=== PATIENT | female | born 1995 | race Two or more races ===

== ENCOUNTER 2023-02-03 10:57 | Inpatient (IN) | payer OTHER, MEDICAID ==
[2023-02-03 11:27] VITALS: BMI 28.8
[2023-02-03 14:18] LABS: Bilirubin Neg (Negative); Blood, Urine Negative (Negative); Clarity Clear (Clear); Glucose, Urine (Dipstick) Normal (Negative); Ketone, Urine Negative (Negative); Leukocyte Negative (Negative); Nitrite Negative (Negative); Protein, Urine (Dipstick) Negative (Neg-Trace); Urobilinogen Normal mg/dL (Less than 2)
[2023-02-03 14:29] LABS: Fetal Membranes Rupture No Membranes Rupture (No Rupture)
[2023-02-03 15:02] LABS: Bacteria/HPF 2+ HPF (None Seen); CAUTI Indications for Culture Dysuria,urgency,freq; RBC/HPF 0-3 HPF (0-3); Squamous Epithelial 0-3 HPF (0-3); WBC/HPF 0-3 HPF (0-3)
[2023-02-03 15:03] LABS: Urine Culture Reflex No No
[2023-02-03] MEDS ORDERED: fentaNYL 50 mcg/mL 1 mL Vial SLOW IVP PRN (15:12)
[2023-02-03] MEDS ORDERED: Acetaminophen 500 MG TAB PO PRN (15:12)
[2023-02-03] MEDS ORDERED: Carboprost 250 MCG/ML AMP IM PRN (15:12)
[2023-02-03] MEDS ORDERED: hydrALAZINE 20 MG/ML VIAL SLOW IVP PRN (15:12)
[2023-02-03] MEDS ORDERED: Methylergonovine 0.2 MG/ML VIAL IM PRN (15:12)
[2023-02-03] MEDS ORDERED: Promethazine HCl 25 MG/ML VIAL IM PRN ×2 (15:12→21:36)
[2023-02-03] MEDS ORDERED: Misoprostol 200 MCG TAB PR PRN (15:12)
[2023-02-03] MEDS ORDERED: Ondansetron PF 4 MG/2 ML Vial IVP PRN ×2 (15:12→21:36)
[2023-02-03] MEDS ORDERED: Lactated Ringer's 1,000 ML IV SCH (15:15)
[2023-02-03] MEDS ORDERED: NS w/ Oxytocin 30 units 500 ML IV SCH (15:15)
[2023-02-03] MEDS ORDERED: Lidocaine 1% (PF) 30 ML VIAL SC PRN (15:16)
[2023-02-03 17:08] LABS: Hematocrit 34.7 % (34.9-44.5); Hemoglobin 11.5 g/dL (12.0-15.5); Mean Corpuscular HGB CONC 33.1 g/dL (32.0-36.0); Mean Corpuscular Hemoglobin 27.6 pg (27.0-33.0); Mean Corpuscular Volume 83.2 fl (81.6-98.3); Mean Platelet Volume 10.8 fl (7.4-10.4); Platelet Count 221 10x3/uL (150-450); RBC Distribution Width 15.4 % (11.5-14.5); Red Blood Cell (RBC) Count 4.17 10x6/uL (3.90-5.03); White Blood Cell (WBC) Count 9.2 10x3/uL (3.5-10.5)
[2023-02-03 17:56] LABS: HBSAg Index 0.15 S/CO (0-0.99); Hep B Surf Ag - L&D Non-Reactive S/CO (NonReactive); Syphilis Antibody Nonreactive (Nonreactive); Syphilis Antibody Index 0.02 S/CO (<1.00 Non-Reactive)
[2023-02-03] MEDS ORDERED: Promethazine HCl 25 MG/ML VIAL ONE (20:42)
[2023-02-03] MEDS ORDERED: fentaNYL/Ropivacaine Epidural 100 ML ONE (20:51)
[2023-02-03] MEDS ORDERED: Moisturizing Cream (Eucerin) 113 GM JAR TOP PRN (21:36)
[2023-02-03] MEDS ORDERED: diphenhydrAMINE 50 MG/ML VIAL IVP PRN (21:36)
[2023-02-03] MEDS ORDERED: Lactated Ringer's 500 ML IV PRN (21:36)
[2023-02-03] MEDS ORDERED: Naloxone HCl 0.4 mg/ml Vial IVP PRN ×2 (21:36)
[2023-02-03] MEDS ORDERED: Acetaminophen 325 MG TAB PO PRN (21:36)
[2023-02-03] MEDS ORDERED: fentaNYL 2 mcg/Ropivacaine 0.2% Epidural 100 ML CADD EPIDURAL SCH (21:45)
[2023-02-03] MEDS ORDERED: Communication Order-Pharmacy FS SCH (21:45)
[2023-02-03] MEDS: ePHEDrine Sulfate 50 MG/10 ML VIAL SLOW IVP PRN (23:40)
[2023-02-04] MEDS: ePHEDrine Sulfate 50 MG/10 ML VIAL SLOW IVP PRN ×2 (03:09→07:48)
[2023-02-04] MEDS ORDERED: ePHEDrine Sulfate 50 MG/10 ML VIAL SLOW IVP SCH (03:30)
[2023-02-04] MEDS ORDERED: NS w/ Oxytocin 30 units 500 ML IV SCH ×2 (06:00)
[2023-02-04] MEDS ORDERED: CEFAZOLIN 2 GM VIAL ONE (09:46)
[2023-02-04] MEDS ORDERED: Azithromycin 500 MG VIAL ONE (09:47)
[2023-02-04] MEDS ORDERED: Famotidine/PF 20 mg/2ml Vial SLOW IVP PRN (09:48)
[2023-02-04] MEDS ORDERED: Bicitra 30 ML UDCUP PO PRN (09:48)
[2023-02-04] MEDS ORDERED: Hepatitis B Vaccine 10 MCG/0.5 ML SYR ONE (09:50)
[2023-02-04] MEDS ORDERED: Erythromycin Base 0.5% Oint 1 GM TUBE ONE (09:50)
[2023-02-04] MEDS ORDERED: Phytonadione Neonatal 1 MG/0.5 ML AMP ONE (09:50)
[2023-02-04] MEDS ORDERED: Ondansetron PF 4 MG/2 ML Vial ONE (09:57)
[2023-02-04] MEDS ORDERED: Morphine PF 10 MG/10 ML VIAL ONE (09:57)
[2023-02-04] MEDS ORDERED: Ketorolac Tromethamine 30 MG/ML VIAL ONE (09:57)
[2023-02-04] MEDS ORDERED: ePHEDrine Sulfate 50 MG/10 ML VIAL ONE (09:57)
[2023-02-04] MEDS ORDERED: Lidocaine 2% MPF 10 ML AMP (For Epidural Use) ONE (09:58)
[2023-02-04] MEDS ORDERED: Azithromycin 500 MG in Sodium Chloride 0.9% 250 ML 250 ML IVPB SCH (10:00)
[2023-02-04] MEDS ORDERED: CEFAZOLIN 2 GM in Sodium Chloride 0.9% 100 ML IVPB SCH (10:00)
[2023-02-04] MEDS ORDERED: Lidocaine 1% PF 5 ML VIAL ONE (10:14)
[2023-02-04] MEDS ORDERED: PHENYLEPHRINE-NS 100 MCG/ML 10 ML SYRINGE ONE (10:30)
[2023-02-04] MEDS ORDERED: fentaNYL 50 mcg/mL 1 mL Vial ONE ×3 (10:33→10:55)
[2023-02-04] MEDS ORDERED: Promethazine HCl 25 MG/ML VIAL ONE (10:34)
[2023-02-04] MEDS ORDERED: Midazolam HCl 2 mg/2 ml Vial ONE (10:52)
[2023-02-04] MEDS ORDERED: Boostrix 0.5 ML (Tdap) VIAL (>/=7 yrs of age) IM ONE (10:59)
[2023-02-04] MEDS ORDERED: hydrALAZINE 20 MG/ML VIAL SLOW IVP PRN (10:59)
[2023-02-04] MEDS ORDERED: Ketorolac Tromethamine 30 MG/ML VIAL IVP PRN (11:22)
[2023-02-04] MEDS ORDERED: Naloxone HCl 0.4 mg/ml Vial IV PRN (11:22)
[2023-02-04] MEDS ORDERED: Ondansetron HCl/PF 4 MG/2 ML Vial IVP PRN (11:22)
[2023-02-04] MEDS ORDERED: Fentanyl 50 MCG/1 ML VIAL SLOW IVP PRN (11:22)
[2023-02-04] MEDS ORDERED: Promethazine HCl 25 MG SUPP PR PRN (11:22)
[2023-02-04] MEDS ORDERED: diphenhydrAMINE 50 MG/ML VIAL IVP PRN (11:22)
[2023-02-04] MEDS ORDERED: Promethazine HCl 25 MG/ML VIAL IM PRN (11:22)
[2023-02-04] MEDS ORDERED: L&D-HYDROmorphone 0.5 MG/0.5 ML SYRINGE SLOW IVP PRN (11:22)
[2023-02-04] MEDS ORDERED: Moisturizing Cream (Eucerin) 113 GM JAR TOP PRN (11:22)
[2023-02-04] MEDS ORDERED: Ondansetron PF 4 MG/2 ML Vial IVP PRN (11:22)
[2023-02-04] MEDS ORDERED: Meperidine HCl/PF 25 MG/ML VIAL SLOW IVP PRN (11:22)
[2023-02-04] MEDS ORDERED: Naloxone HCl 0.4 mg/ml Vial IVP PRN ×2 (11:22)
[2023-02-04] MEDS ORDERED: Communication Order-Pharmacy FS SCH (11:30)
[2023-02-04] MEDS ORDERED: Ketorolac Tromethamine 30 MG/ML VIAL IVP SCH (11:30)
[2023-02-04] MEDS ORDERED: Oxytocin 10 UNITS/ML VIAL ONE (12:33)
[2023-02-04] MEDS ORDERED: Ibuprofen 800 MG TAB PO SCH (14:00)
[2023-02-05 03:50] LABS: Hematocrit 26.8 % (34.9-44.5); Hemoglobin 8.7 g/dL (12.0-15.5); Mean Corpuscular HGB CONC 32.5 g/dL (32.0-36.0); Mean Corpuscular Hemoglobin 27.4 pg (27.0-33.0); Mean Corpuscular Volume 84.5 fl (81.6-98.3); Mean Platelet Volume 10.6 fl (7.4-10.4); Platelet Count 183 10x3/uL (150-450); RBC Distribution Width 15.6 % (11.5-14.5); Red Blood Cell (RBC) Count 3.17 10x6/uL (3.90-5.03); White Blood Cell (WBC) Count 11.2 10x3/uL (3.5-10.5)
[2023-02-05] MEDS ORDERED: hydrALAZINE 20 MG/ML VIAL SLOW IVP PRN (07:35)
[2023-02-05] MEDS ORDERED: HYDROcodone/Acetaminophen 5/325 mg Tablet PO PRN (07:35)
[2023-02-05] MEDS ORDERED: Milk Of Magnesia 30 ML UDCUP PO PRN (07:35)
[2023-02-05] MEDS ORDERED: Bisacodyl 10 MG SUPP PR PRN (07:35)
[2023-02-05] MEDS: Acetaminophen 325 MG TAB PO SCH ×3 (08:28→20:48)
[2023-02-05] MEDS: Ferrous Sulfate 325 MG TAB PO SCH ×2 (08:28→18:14)
[2023-02-05] MEDS: Ibuprofen 800 MG TAB PO SCH ×3 (08:29→20:48)
[2023-02-05] MEDS: Docusate 100 MG CAP PO SCH ×2 (08:29→20:49)
[2023-02-05] MEDS: HYDROcodone/Acetaminophen 5/325 mg Tablet PO PRN ×2 (16:56→23:14)
[2023-02-06] MEDS: Ibuprofen 800 MG TAB PO SCH ×3 (07:20→13:55)
[2023-02-06] MEDS: Acetaminophen 325 MG TAB PO SCH ×3 (07:22→13:53)
[2023-02-06 07:51] VITALS: BP 101/58; TEMP 97.7
[2023-02-06] MEDS: HYDROcodone/Acetaminophen 5/325 mg Tablet PO PRN ×2 (08:03→14:44)
[2023-02-06] MEDS: Docusate 100 MG CAP PO SCH (08:04)
[2023-02-06] MEDS: Ferrous Sulfate 325 MG TAB PO SCH (08:04)
== END 2023-02-06 15:50 | disposition home or self-care (01) | DRG 787 ==
LOC: CSHLD/OP 10:57 → CSHLD 15:17 → CSHPP 02-04 13:20
PROVIDERS: ADMIT Student in an Organized Health Care Education/Training Program; ATTEND Student in an Organized Health Care Education/Training Program
PROC: 10907ZC Drainage of Amniotic Fluid, Therapeutic from Products of Conception, Via Natural or Artificial Opening (ICD-10-PCS; principal; 2023-02-04)
PROC: 10D00Z1 Extraction of Products of Conception, Low, Open Approach (ICD-10-PCS; 2023-02-04)
PROC: 10H07YZ Insertion of Other Device into Products of Conception, Via Natural or Artificial Opening (ICD-10-PCS; 2023-02-04)
DX: O36.8130 Decreased fetal movements, third trimester, not applicable or unspecified (principal); O98.82 Other maternal infectious and parasitic diseases complicating childbirth; Z3A.39 39 weeks gestation of pregnancy; Z37.0 Single live birth; O42.02 Full-term premature rupture of membranes, onset of labor within 24 hours of rupture; O75.89 Other specified complications of labor and delivery; R35.0 Frequency of micturition; O99.62 Diseases of the digestive system complicating childbirth; K21.9 Gastro-esophageal reflux disease without esophagitis; B37.31 Acute candidiasis of vulva and vagina; O99.02 Anemia complicating childbirth
CPT/HCPCS: 36415; 51702; 76819; 81001; 84112; 85027; 86780; 86850; 86900; 86901; 87340; J1885; J2250; J2274; J2405; J2550; J2590; J3010; J3490

== ENCOUNTER 2023-04-07 08:45 | Outpatient (CLI) | payer OTHER | END 2023-04-07 08:46 | disposition home or self-care (01) | LOC: CSHULT 08:45 | PROVIDERS: ATTEND Student in an Organized Health Care Education/Training Program | DX: N63.10 Unspecified lump in the right breast, unspecified quadrant (principal); N63.20 Unspecified lump in the left breast, unspecified quadrant | CPT/HCPCS: 77066; G0279 ==